=== PATIENT | female | born 1940 | race Caucasian/White ===

== ENCOUNTER → 2016-09-04 | Outpatient (CLI) | payer MEDICARE, BC ==
[2004-09-08 07:31] VITALS: TEMP 97.3
[~2016-09-04] MED LIST: ADVIL 200MG TA200 MG PO; CALTRATE-600 W600 MG PO; FOSAMAX PO; GLUCOSAMINE
== END ==
LOC: MC.RAD 11:34
DX: Z12.31 Encounter for screening mammogram for malignant neoplasm of breast (principal)

== ENCOUNTER → 2017-11-07 | Outpatient (CLI) | payer MEDICARE, BC ==
[2004-09-08 07:31] VITALS: TEMP 97.3
== END ==
LOC: MC.RAD 13:14
DX: Z12.31 Encounter for screening mammogram for malignant neoplasm of breast (principal)

== ENCOUNTER 2018-11-17 15:52 | Outpatient (CLI) | payer MEDICARE, BC ==
[~2018-11-17] VITALS: Ht 157.5 cm; Wt 68.0 kg
[2018-11-17 16:26] VITALS: BP 132/67; PULSE 62; TEMP 97.8
[2018-11-17] MEDS ORDERED: PRESERVISION1 SGL PO (16:31)
[2018-11-17] MEDS ORDERED: BYSTOLIC2.5 MG PO (16:31)
--- NOTE | 2018-11-17 16:44 | NUR ---
Pt jack prolia well. Pt discharged per ambulation.
== END 2018-11-17 16:44 | disposition home or self-care (01) ==
LOC: EUO 15:52
DX: M81.0 Age-related osteoporosis without current pathological fracture (principal)
CPT/HCPCS: J0897

== ENCOUNTER 2020-12-22 15:31 | Outpatient (CLI) | payer MEDICARE, BC ==
[~2020-12-22] VITALS: Ht 157.5 cm; Wt 70.8 kg
[~2020-12-22 15:31] MED LIST changes: +BYSTOLIC2.5 MG PO; +PRESERVISION1 SGL PO
[2020-12-22 15:57] VITALS: BP 157/89; PULSE 61; TEMP 98.4
[2020-12-22] MEDS ORDERED: NEXIUM 20MG20 MG PO (16:04)
== END 2020-12-22 16:14 ==
LOC: EUO 15:31
DX: M81.0 Age-related osteoporosis without current pathological fracture (principal)
CPT/HCPCS: J0897

== ENCOUNTER 2023-10-04 21:32 | Inpatient (IN) | payer MEDICARE, BC ==
[~2023-10-04] VITALS: Ht 157.5 cm; Wt 63.9 kg
[~2023-10-04 21:32] MED LIST changes: +Doxycycline Hyclate 100 MG in NS 150 ML IV SCH; +MOBIC15 MG PO; +NEXIUM 20MG20 MG PO; +PROLIA60 MG/ML SQ; +XALATAN EYE DROPS OD
[2023-10-04] MEDS ORDERED: LR 1,000 ML IV ONE (22:00)
[2023-10-04 22:13] LABS: BASO % 0.3 % (0.0-2.0); EOS % 0.2 % (0.0-4.0); GRAN # 12.9 K/mm3 (1.4-6.5); HEMOGLOBIN 12.3 g/dl (12.5-16.0); LYMPH # 0.9 K/mm3 (1.2-3.4); LYMPH % 5.8 % (20.0-51.0); MEAN CELL VOLUME 88 fl (80.0-100.0); MEAN CORPUSCULAR HEMOGLOBIN 30 pg (27-31); MEAN CORPUSCULAR HGB CONC 35 g/dl (33.0-37.0); MEAN PLATELET VOLUME 10.1 fl (7.4-10.4); MONO # 1.2 K/mm3 (0.1-0.6); MONO % 7.8 % (1.7-9.3); PLATELET COUNT 355 K/mm3 (130-400); RED BLOOD COUNT 4.06 M/mm3 (4.10-5.30); REDCELL DISTRIBUTION WIDTH-CV 12.9 % (11.5-14.5)
[2023-10-04 22:14] LABS: HEMATOCRIT 35.6 % (37.0-47.0)
[2023-10-04 22:30] LABS: ALBUMIN 2.9 g/dL (3.4-4.8); BILIRUBIN,TOTAL 0.9 mg/dL (0.2-1.2); C-REACTIVE PROTEIN 23.26 mg/dL (0.00-0.50); CALCIUM 9.3 mg/dL (8.4-10.2); CREATININE, serum 0.94 mg/dL (0.57-1.11); POTASSIUM 4.2 mEq/L (3.5-4.5); TOTAL PROTEIN 6.1 g/dl (6.2-8.1)
[2023-10-04 22:36] LABS: TROPONIN-I 0.016 ng/mL (0.00-0.033)
[2023-10-04] MEDS ORDERED: Doxycycline Hyclate 100 MG in NS 150 ML IV ONE (23:00)
[2023-10-04] MEDS ORDERED: cefTRIAXone 2 G in Water For Injection,Sterile 20 ML IV ONE (23:00)
[2023-10-04] MEDS ORDERED: Acetaminophen 325 MG TAB PO PRN (23:15)
[2023-10-04] MEDS ORDERED: hydrALAZINE 20 MG/ML 1 ML VIAL IV PRN (23:15)
[2023-10-04] MEDS ORDERED: Albuterol/Ipratropium 3 MG-0.5 MG/3 ML Neb Soln IH PRN (23:15)
[2023-10-04] MEDS ORDERED: Ondansetron 4 MG/2 ML VIAL IV PRN (23:15)
[2023-10-04] MEDS ORDERED: NS 1,000 ML IV SCH (23:30)
[2023-10-04] MEDS ORDERED: Latanoprost 0.005% Ophth Soln 2.5 ML BOTTLE OP SCH (23:42)
[2023-10-04] MEDS ORDERED: LEVAQUIN 750MG750 M1 (23:55)
[2023-10-05] VITALS (9 sets, daily range): BP systolic 121–163; BP diastolic 60–85; PULSE 73–87; TEMP 97.4–99.6
[2023-10-05] MEDS ORDERED: TOPROL XL 25MG25 MG PO (00:34)
--- NOTE | 2023-10-05 00:58 | NUR ---
pt arrived to room 308 at 0020. pt ambulated to bed without issue. pt denies pain. pt ambulated to bathroom without issue. UA collected, clear yellow urine noted. pt iv abx administered in ER and completed once pt arrived to room. ivf now running to left forearm iv without issue. admission, physical assessment, and med rec complete. pt is hard of hearing in both ears, hearing aids at bedside charging now. call light in reach. all needs met at this time.
[2023-10-05 01:14] LABS: URINE APPEARANCE CLEAR (CLEAR/HAZY); URINE BLOOD NEGATIVE (NEGATIVE); URINE COLOR YELLOW (YELLOW); URINE GLUCOSE NEGATIVE (NEGATIVE); URINE KETONE 1+ (NEGATIVE); URINE NITRATE NEGATIVE (NEGATIVE); URINE PROTEIN(semi-quant) 1+ (NEGATIVE); URINE UROBILINOGEN 0.2 E.U/dL (0.2-1.0)
[2023-10-05 01:31] LABS: COLLECTION METHOD CLEAN CATCH
[2023-10-05 06:26] LABS: BASO % 0.3 % (0.0-2.0); EOS # 0.1 K/mm3 (0.0-0.7); EOS % 0.8 % (0.0-4.0); GRAN # 11.8 K/mm3 (1.4-6.5); GRAN % 84.3 % (42.2-75.2); HEMOGLOBIN 10.8 g/dl (12.5-16.0); LYMPH # 0.7 K/mm3 (1.2-3.4); LYMPH % 5.1 % (20.0-51.0); MEAN CELL VOLUME 88 fl (80.0-100.0); MEAN CORPUSCULAR HEMOGLOBIN 30 pg (27-31); MEAN CORPUSCULAR HGB CONC 34 g/dl (33.0-37.0); MEAN PLATELET VOLUME 10.5 fl (7.4-10.4); MONO # 1.2 K/mm3 (0.1-0.6); MONO % 8.6 % (1.7-9.3); PLATELET COUNT 306 K/mm3 (130-400); RED BLOOD COUNT 3.61 M/mm3 (4.10-5.30); REDCELL DISTRIBUTION WIDTH-CV 13.1 % (11.5-14.5)
[2023-10-05 06:28] LABS: HEMATOCRIT 31.8 % (37.0-47.0)
[2023-10-05 06:42] LABS: ALBUMIN 2.4 g/dL (3.4-4.8); BILIRUBIN,TOTAL 0.5 mg/dL (0.2-1.2); CALCIUM 8.6 mg/dL (8.4-10.2); CREATININE, serum 0.83 mg/dL (0.57-1.11); POTASSIUM 3.8 mEq/L (3.5-4.5); TOTAL PROTEIN 4.9 g/dl (6.2-8.1)
--- NOTE | 2023-10-05 07:00 | NUR ---
PT RESTING IN BED. BEDSIDE SHIFT REPORT GIVEN AT THIS TIME. PT HAS NO QUESTIONS OR COMPLAINTS AT THIS TIME.
[2023-10-05] MEDS ORDERED: Sennosides/Docusate 8.6-50 MG TAB PO SCH (09:00)
--- NOTE | 2023-10-05 09:23 | NUR ---
SW met with patient to completed intake assessment and discuss discharge planning, patient's daughter (Barb Joe [phone]) was present and permitted to remain in room during intake by patient. Patient confirmed that she resides with her (Olegario Joe [phone]) and son (Chaparro Joe [phone]) in their home in [place]. Patient reports that her PCP is Dr Andersen and pharmacy of choice is [facility]. Patient reports that she is independent with ADLs and currently does not use any DMEs. Patient informed SW that she does have DPOA at home. Patient is anticipating to be discharged by to her home with spouse and adult son. Discharge plan: Home with family (pending)
--- NOTE | 2023-10-05 09:41 | NUR ---
SHIFT ASSESSMENT COMPLETED AT THIS TIME. PT A&O X4. PT VOICES NO COMPLAINTS OR CONCERNS AT THIS TIME. DAUGHTER AT BEDSIDE, REQUESTS BREATHING TREATMENT TO HELP WITH COUGH. SPUTUM SPECIMAN COLLECTED AND SENT TO LAB. SCHEDULED MORNING MEDICATIONS ADMINISTERED AT THIS TIME. PT REFUSES SCHEDULDED SENNA D/T DIARRHEA. CALL LIGHT WITHIN REACH.
[2023-10-05] MEDS ORDERED: Albuterol/Ipratropium 3 MG-0.5 MG/3 ML Neb Soln IH SCH (13:00)
--- NOTE | 2023-10-05 13:39 | NUR ---
Data: Patient's Daughter accepted spiritual care visit offered during Technical Research Scientist rounds. Assessment: Patient stated she had no spiritual needs. She saw the visit as an opportunity to meet someone new. Plan of Care: Technical Research Scientist offered conversation. Technical Research Scientist offered a prayer for healing. Patient and Daughter thanked Technical Research Scientist for the visit. Chaplains will remain available as needed/requested while Patient is admitted to this hospital.
[2023-10-05] MEDS ORDERED: Benzonatate 100 MG CAP PO SCH (14:00)
--- NOTE | 2023-10-05 14:51 | NUR ---
PT REQUESTS BLOOD PRESSURE MEDICATION D/T NOT RECIEVING IT THIS MORNING AND HAVING AN ELEVATED BLOOD PRESSURE. THIS NURSE PLACED A PHONE CALL TO DR. HAYDEN AND RECIEVED NEW ORDERS TO START MEDICATION NOW.
--- NOTE | 2023-10-05 15:02 | NUR ---
NEW ORDERS RECIEVED TO DECREASE RATE OF IV FLUIDS. THIS NURSE COMPLETED THAT ORDER AT THIS TIME.
--- NOTE | 2023-10-05 16:25 | NUR ---
PT RESTING IN BED WITH EYES CLOSED. PT EASILY AROUSABLE AND VOICES NO CONCERNS OR QUESTIONS AT THIS TIME. PT DENIES ANY PAIN AT THIS TIME. CALL LIGHT WITHIN REACH.
--- NOTE | 2023-10-05 18:28 | NUR ---
PT RESTING IN BED. NO COMPLAINTS AT THIS TIME. FAMILY AT BEDSIDE.
--- NOTE | 2023-10-05 20:57 | NUR ---
Patient assessed at this time, see shift assessment, still with IV infusing well on left forearm NS at 75cc/hr, denies pain or discomfort, supportive family at bedside, denies further needs, call light and personal items within reach, will continue to monitor.
[2023-10-05] MEDS ORDERED: cefTRIAXone 1 G in Water For Injection,Sterile 10 ML IV SCH (21:00)
[2023-10-06] VITALS (8 sets, daily range): BP systolic 121–161; BP diastolic 74–89; PULSE 68–78; TEMP 97.7–97.9
[2023-10-06 06:00] LABS: HEMOGLOBIN 10.2 g/dl (12.5-16.0); MEAN CELL VOLUME 87 fl (80.0-100.0); MEAN CORPUSCULAR HEMOGLOBIN 29 pg (27-31); MEAN CORPUSCULAR HGB CONC 33 g/dl (33.0-37.0); MEAN PLATELET VOLUME 9.7 fl (7.4-10.4); PLATELET COUNT 282 K/mm3 (130-400); REDCELL DISTRIBUTION WIDTH-CV 13.2 % (11.5-14.5)
[2023-10-06 06:02] LABS: HEMATOCRIT 30.5 % (37.0-47.0)
[2023-10-06 06:17] LABS: CALCIUM 8.3 mg/dL (8.4-10.2); CREATININE, serum 0.76 mg/dL (0.57-1.11); MAGNESIUM 1.8 mg/dL (1.6-2.6); POTASSIUM 3.7 mEq/L (3.5-4.5)
--- NOTE | 2023-10-06 06:36 | NUR ---
Patient had an uneventful night, still resting in bed, eyes closed, looks comfortable, respirations even and unlabored.
[2023-10-06 06:51] LABS: BAND 1 % (0-10); EOSINOPHIL 1 % (0-4); LYMPHOCYTE 10 % (20.0-51.0); NEUTROPHILS 79 % (42.0-75.2); PLATELET ESTIMATE NORMAL (NORMAL)
--- NOTE | 2023-10-06 07:45 | NUR ---
Patient laying in bed sleeping, easily awakened with verbal command. A&Ox4. VSS. IV CDI, fluids infusing. Denies pain and discomfort. Call light within reach. Bed alarm on
[2023-10-06] MEDS ORDERED: Eye Formula MVI w/Minerals TABLET PO SCH (09:00)
--- NOTE | 2023-10-06 21:57 | NUR ---
SHIFT ASSESSMENT COMPLETE. VSS. PATIENT UP IN RECLINER UPON ARRIVAL. AMBULATING IND. AROUND THE ROOM AND IN THE HALLWAYS. NIGHT MEDS GIVEN ORDERED. PATIENT DECLINED LOVENOX INJECION DUE TO WALKING PLENTY AND THE STOOL SOFTENER DUE TO HAVING SOFT STOOLS. PATIENT EXPRESSED NO PAIN OR NEEDS AT THIS TIME. CALL LIGHT IN REACH.
[2023-10-07] VITALS: BP 152/79; PULSE 76; TEMP 98
[2023-10-07 00:22] VITALS: BP_SYST 152
[2023-10-07 04:39] VITALS: BP 151/77; PULSE 68; TEMP 98.4
--- NOTE | 2023-10-07 05:30 | NUR ---
I ASSUMED CARE OF PT AROUND 0240HRS. PT A&O X 4; VSS; O2 RA. PT DENIED GENERAL PAIN, CHEST PAIN, PALPITATIONS, SOB, N,V,D OR DIZZINESS. PT EXPRESSED NO ADDITIONAL NEEDS OR CONCERNS. CALL LIGHT WITHIN REACH.
[2023-10-07 07:27] LABS: HEMOGLOBIN 10.8 g/dl (12.5-16.0); MEAN CELL VOLUME 88 fl (80.0-100.0); MEAN CORPUSCULAR HEMOGLOBIN 29 pg (27-31); MEAN CORPUSCULAR HGB CONC 33 g/dl (33.0-37.0); PLATELET COUNT 328 K/mm3 (130-400); RED BLOOD COUNT 3.72 M/mm3 (4.10-5.30); REDCELL DISTRIBUTION WIDTH-CV 13.2 % (11.5-14.5)
[2023-10-07 07:31] LABS: HEMATOCRIT 32.6 % (37.0-47.0)
[2023-10-07 07:56] VITALS: BP 175/72; PULSE 77; TEMP 97.8
[2023-10-07] MEDS ORDERED: OMNICEF 300MG300 MG PO (08:33)
[2023-10-07] MEDS ORDERED: DOXYCYCLINE HY100 MG PO (08:34)
[2023-10-07] MEDS ORDERED: PROAIR HFA0.09 MG/AC IH (08:37)
[2023-10-07 09:00] VITALS: BP_SYST 175
[2023-10-07 09:15] LABS: BAND 8 % (0-10); EOSINOPHIL 3 % (0-4); LYMPHOCYTE 18 % (20.0-51.0); NEUTROPHILS 65 % (42.0-75.2)
[2023-10-07 09:16] LABS: PLATELET ESTIMATE NORMAL (NORMAL)
--- NOTE | 2023-10-07 10:09 | NUR ---
DISCHARGE INSTRUCTIONS REVIEWED WITH PT AND SON. QUESTIONS SOLICITED AND ANSWERED, PT RESTING IN RECLINER WILL DISCHARGE AFTER ABX COMPLETE.
--- NOTE | 2023-10-07 11:26 | NUR ---
custodial maintenance worker attended interdisciplinary clinical rounding with Dr. Luong. Patient is medically ready for discharge. SW met with patient and reviewed the important message from [employer]. Patient understood, no questions. SW made copy of form, placed original in chart, provided copy to patient. Discharge plan: Home
== END 2023-10-07 10:45 | disposition home or self-care (01) | DRG 194 ==
LOC: COL.ER 21:32 → SURG 23:11 → MEDICAL 23:11 → SURG 10-05 16:32 → MEDICAL 10-06 08:27
PROVIDERS: Emergency Medicine; Internal Medicine; Physician Assistant; ADMIT Internal Medicine
DX: J18.9 Pneumonia, unspecified organism (principal); E87.1 Hypo-osmolality and hyponatremia; H40.9 Unspecified glaucoma; Z66 Do not resuscitate
CPT/HCPCS: A9284; J0696; J1650; J7030; J7120